=== PATIENT | male | born 1955 | race Caucasian/White ===

== ENCOUNTER 2021-12-26 16:51 | Emergency (ER) | payer SELFPAY ==
[2021-12-26 19:53] LABS: HCT 45.5 % (42.0-52.0); HGB 15.4 g/dl (13.2-18.0); MCH 30.1 pg (25.0-31.0); MCHC 33.8 g/dL (32.0-36.0); MPV 9.5 fL (6.0-9.5); RBC 5.11 M/uL (4.70-6.00); RDW 13.9 % (11.5-14.0); WBC 10.2 K/uL (4.0-10.5)
[2021-12-26 20:21] LABS: BUN/CREAT RATIO (CALC) 29.1 RATIO; CREATININE 0.79 mg/dL (0.67-1.17); POTASSIUM 3.9 mmol/L (3.5-5.1)
[2021-12-26] MEDS ORDERED: AMOX TR-K CLV1 EAC4 PO (21:56)
[2021-12-26] MEDS ORDERED: VIBRAMYCIN100 MG PO (21:56)
[2021-12-26 22:59] LABS: CORONAVIRUS 2019 SARS-COV-2 NEGATIVE (NEGATIVE); INFLUENZA A NAA NEGATIVE (NEGATIVE)
== END 2021-12-26 22:16 | disposition home or self-care (01) ==
LOC: FER 16:51
PROVIDERS: Physician Assistant
DX: J18.9 Pneumonia, unspecified organism (principal); F17.210 Nicotine dependence, cigarettes, uncomplicated; Z20.822 Contact with and (suspected) exposure to COVID-19
CPT/HCPCS: 36415; 71045; 71275; 80048; Q9967; U0002